=== PATIENT | male | born 1990 | race Caucasian/White ===

== ENCOUNTER → 2020-10-05 11:26 | Outpatient (BNVA) | payer OTHER, SELFPAY | PROVIDERS: Visit Provider Nurse Practitioner Family | DX: E11.9 Type 2 diabetes mellitus without complications (principal); E55.9 Vitamin D deficiency, unspecified; Z76.89 Persons encountering health services in other specified circumstances; Z68.39 Body mass index [BMI] 39.0-39.9, adult | CPT/HCPCS: 80053; 80061; 82306; 83036; 84443; 85025 ==

== ENCOUNTER → 2021-02-11 13:03 | Outpatient (BNVA) | payer OTHER, SELFPAY | PROVIDERS: Visit Provider Nurse Practitioner Family | DX: E11.9 Type 2 diabetes mellitus without complications (principal); E55.9 Vitamin D deficiency, unspecified; E87.1 Hypo-osmolality and hyponatremia | CPT/HCPCS: 80053; 82306; 83036 ==